=== PATIENT | female | born 1990 | race Caucasian/White ===

== ENCOUNTER 2016-06-20 00:54 | Emergency (ER) | payer OTHER ==
[2016-06-20 00:55] VITALS: BMI 24.7
--- NOTE | 2016-06-20 01:33 | ED PDOC ---
HPI: Abdomen Time Seen by Provider: 06/20/16 01:06 Chief Complaint (Nursing): Abdominal Pain Chief Complaint (Provider): Abdominal Pain History Per: Patient History/Exam Limitations: no limitations Onset/Duration Of Symptoms: Days (x9) Location Of Pain/Discomfort: Other (Radiated to the back) Associated Symptoms: Back Pain. denies: Nausea, Vomiting Additional Complaint(s): Mahesh Newby is a 25 year old female with a past medical history of anxiety and asthma who presents to the ED with a chief complaint of pelvic pain onset x9 days prior to arrival. Associated symptoms include leg cramping but denies any nausea or vomiting. Prior to arrival patient consulted with Dr. Gauthier at [facility] where an Ultrasound showed questionable early IUP vs ectopic with no pole or yolk sac and was advised to return to the ED if pain was persistent. Patients reports pain radiated to the back, her last menstrual period was 05/15/2016 and has been given Tylenol for the pain from monitoring analyst REGULAT[employer] COORDINATOR Dr. Clark who suggested to repeat an ultrasound. Patients quantitative HCG is 699.67. Last Menstral Period: 05/15/2016 Past Medical History Reviewed: Historical Data, Nursing Documentation, Vital Signs Vital Signs: Last Vital Signs Temp 98 F 06/20/16 01:04 Pulse 101 H 06/20/16 01:04 Resp 20 06/20/16 01:04 BP 123/65 06/20/16 01:04 Pulse Ox 96 06/20/16 01:55 - Medical History PMH: Anxiety, Asthma Denies: Colonic Polyps - Family History Family History: States: Unknown Family Hx - Home Medications Home Medications: Ambulatory Orders Medication Instructions Recorded Ketoprofen 2 tab PO DAILY 08/26/15 Nitrofurantoin Macrocrystals 100 mg PO BID #14 cap 06/20/16 [Macrobid] - Allergies Allergies/Adverse Reactions: Allergies Allergy/AdvReac Type Severity Reaction Status Date / Time apple Allergy Mild RASH Verified 08/26/15 09:39 kiwi Allergy Mild RASH Verified 08/26/15 09:39 strawberry Allergy Mild RASH Verified 08/26/15 09:39 Review of Systems ROS Statement: Except As Marked, All Systems Reviewed And Found Negative Gastrointestinal: Positive for: Abdominal Pain (Significant). Negative for: Nausea, Vomiting Musculoskeletal: Positive for: Leg Pain (cramping on legs) Physical Exam - Reviewed Nursing Documentation Reviewed: Yes Vital Signs Reviewed: Yes - Physical Exam Appears: Positive for: Well, No Acute Distress Head Exam: Positive for: ATRAUMATIC, NORMAL INSPECTION, NORMOCEPHALIC Skin: Positive for: Normal Color, Warm, Dry Eye Exam: Positive for: Normal appearance, EOMI, PERRL ENT: Positive for: Normal ENT Inspection Neck: Positive for: Normal, Painless ROM, Supple Cardiovascular/Chest: Positive for: Regular Rate, Rhythm, Chest Non Tender. Negative for: Murmur, Tachycardia Respiratory: Positive for: Normal Breath Sounds. Negative for: Wheezing, Respiratory Distress Gastrointestinal/Abdominal: Positive for: Normal Exam, Soft, Tenderness Pelvic Exam: Positive for: Other (Pelvic tenderness) Back: Positive for: Normal Inspection. Negative for: L CVA Tenderness, R CVA Tenderness Rectal: Positive for: Deferred Extremity: Positive for: Normal ROM. Negative for: Tenderness Lymphatic: Positive for: Deferred Neurologic/Psych: Positive for: Alert, Oriented - ECG O2 Sat by Pulse Oximetry: 96 (RA) Pulse Ox Interpretation: Normal Medical Decision Making Medical Decision Makin: Initial Impression: Ectopic vs miscarriage Initial Plan: * Acetaminophen 650mg * UA * Re-Eval * 0342: PT was seen and cleared by obgyn -Nasra SAWANT . Pt is required to return to ED in 48hrs. US shows: FINDINGS: Gestation: Gestational sac. No yolk sac. No pole. Mean sac diameter of 0.35 cm, out of range. Uterus/cervix: 0.7 x 0.3 x 0.6 cm collection along gestational sac. Closed cervix. Ovaries: Normal ovaries. No adnexal masses. Free fluid: Small free fluid within pelvis. IMPRESSION: 1. Intrauterine , of uncertain viability. Recommend followup. 2. Subchorionic hemorrhage. 3. Incidental/non-acute findings are described above. UA: shows trace leuk/some WBC-considering pt with normal temperature in ED but with suprapubic pain and back pain(no protein in UA-lower likelihood of renal stone) most probable to be a UTI. will treat with macrobid and send for culture. pt understands and agrees with plan. advised to f.u with obgyn as scheduled and if with worsened pain and or fever chills vomiting to return to ED. pt advised she will have breast tenders with the . Scribe Attestation: Documented by Kimberley Betancur acting as a scribe for Vickie Boyd PA-C. Provider Scribe Attestation: All medical record entries made by the~Reemawere at my direction and personally dictated by me. I have reviewed the chart and agree that the record accurately reflects my personal performance of the history, physical exam, medical decision making, and the department course for this patient. I have also personally directed, reviewed, and agree with the discharge instructions and disposition. Disposition - Clinical Impression Clinical Impression: Abdominal pain during , UTI (urinary tract infection) - Patient ED Disposition Is Patient to be Admitted: No Counseled Patient/Family Regarding: Studies Performed, Diagnosis, Need For Followup, Rx Given - Disposition [facility] Disposition: Routine/Home Disposition Time: 03:50 Condition: STABLE Prescriptions: Nitrofurantoin Macrocrystals [Macrobid] 100 mg PO BID #14 cap Instructions: Urinary Tract Infection in (ED), (ED), Morning Sickness (ED)
[2016-06-20 02:00] LABS: RBC URINE 2 /hpf (0-3); URINE BILIRUBIN NEGATIVE (NEGATIVE); URINE BLOOD NEGATIVE (NEGATIVE); URINE COLOR STRAW (YELLOW); URINE GLUCOSE (UA) NEG (Normal); URINE KETONE NEGATIVE (NEGATIVE); URINE LEUKOCYTE ESTERASE TRACE Leu/uL (Negative); URINE PROTEIN NEGATIVE (NEGATIVE); URINE UROBILINOGEN 0.2-1.0 mg/dL (0.2-1.0); WBC URINE 4 /hpf (0-5)
--- NOTE | 2016-06-20 03:20 | US ---
EXAM: US First Trimester, Transabdominal CLINICAL HISTORY: 25 years old, female; Pain; Other: Pelvic pain; Gestational age or lmp: 05/15/16; ; Additional info: Pelvic cramping 4 weeks preg. TECHNIQUE: Real-time transabdominal obstetrical ultrasound of the maternal pelvis and a first trimester with image documentation. COMPARISON: No relevant prior studies available. FINDINGS: Gestation: Gestational sac. No yolk sac. No pole. Mean sac diameter of 0.35 cm, out of range. Uterus/cervix: 0.7 x 0.3 x 0.6 cm collection along gestational sac. Closed cervix. Ovaries: Normal ovaries. No adnexal masses. Free fluid: Small free fluid within pelvis. IMPRESSION: 1. Intrauterine , of uncertain viability. Recommend followup. 2. Subchorionic hemorrhage. 3. Incidental/non-acute findings are described above. EXAM: US , Transvaginal CLINICAL HISTORY: 25 years old, female; Pain; Other: Pelvic pain; Gestational age or lmp: 05/15/16; ; Additional info: Pelvic cramping 4 weeks preg. TECHNIQUE: Real-time transvaginal obstetrical ultrasound of the maternal pelvis and a first trimester with image documentation. Transvaginal imaging was used for better evaluation of the fetus and adnexa. COMPARISON: No relevant prior studies available. FINDINGS: Gestation: Gestational sac. No yolk sac. No pole. Mean sac diameter of 0.35 cm, out of range. Uterus/cervix: 0.7 x 0.3 x 0.6 cm collection along gestational sac. Closed cervix. Ovaries: Normal ovaries. No adnexal masses. Free fluid: Small free fluid within pelvis. IMPRESSION: 1. Intrauterine , of uncertain viability. Recommend followup. 2. Subchorionic hemorrhage. 3. Incidental/non-acute findings are described above. EXAM: US Abdomen Limited, Appendix CLINICAL HISTORY: 25 years old, female; Pain; Other: Pelvic pain; Gestational age or lmp: 05/15/16; ; Additional info: Pelvic cramping 4 weeks preg. TECHNIQUE: Real-time ultrasound of the right lower quadrant with image documentation. COMPARISON: No relevant prior studies available. FINDINGS: Appendix: Not visualized. Free fluid: Small free fluid within RIGHT lower quadrant. IMPRESSION: 1. Nonvisualization of appendix. 2. Incidental/non-acute findings are described above.
[2016-06-20 03:56] VITALS: BP 98/53; PULSE 100; RESP 18; TEMP 98.4; O2SAT 100
--- NOTE | 2016-06-20 04:10 | CP.PCM.CON ---
History of Present Illness - History of Present Illness History of Present Illness: Pt is a G1 LMP 05/15/16 who presents to ED with c/o pelvic pain x 9days prior to presentation today. She describes the pain as suprapubic with bilateral radiation to BLQs and at present radiation to BUQs and breast pain. She denies n/v at present. States she had 1 episode of diarrhea Tuesday morning and none since. She denies vag bleeding, abnormal vag d/c, and coitus in past 2wks. States she has some internal dysuria which is mild with onset of ~1.5wks. Pt was seen in [place] ED for c/o pain 06/19/16. An ultrasound in [place] showed questionable early IUP vs ectopic with no pole or yolk sac and quantitative HCG was 699.67. Pt was advised to return to the ED if pain was persistent. Ultrasound today in [facility] shows a gestational sac 7.5 mm and a collection adj to sac measuring 1g9x5ml. No yolk sac yet visualized. The impression early iup with subchorionic hemorrhage. PSYCH HX: COLEMAN PMHX: ASTHMA; GASTRITIS WITH H.PYLORI IN PAST; UTI PSHX: T&A SHX: DENIES TOBACCO, ILLICIT DRUG USE OR ETOH ALLEGIES: FRUIT- kiwi, strawberry, & apple Review of Systems - Constitutional Constitutional: absent: Chills, Fever, Increased Appetite, Weight Gain, Weight Loss - Breasts Breasts: Pain. absent: Mass, Skin Changes - Cardiovascular Cardiovascular: absent: Chest Pain - Respiratory Respiratory: absent: Cough, Dyspnea on Exertion - Gastrointestinal Gastrointestinal: Abdominal Pain, Change in Bowel Habits, Heartburn. absent: Vomiting - Reproductive: Female Reproductive:Female: Pelvic Pain. absent: Abnormal Vaginal Bleeding, Vaginal Discharge, Vaginal Dryness, Vaginal Odor, Vaginal Pruritis Past Patient History - Infectious Disease Hx of Infectious Diseases: None - Past Medical History & Family History Past Medical History?: Yes - Past Social History Smoking Status: Never Smoked - PULMONARY Hx Asthma: Yes - HEENT Hx HEENT Problems: Yes Other/Comment: WAX BUILDUP RIGHT EAR; AWAITING TO SEE MD TO REMOVE. - HEMATOLOGICAL/ONCOLOGICAL Hx Blood Transfusions: No - GASTROINTESTINAL Hx Gastrointestinal Disorders: No - PSYCHIATRIC Hx Anxiety: Yes - SURGICAL HISTORY Hx Surgeries: No - ANESTHESIA Hx Anesthesia: No Hx Anesthesia Reactions: No Hx Malignant Hyperthermia: No Meds Home Medications: Home Medication List Medication Instructions Recorded Confirmed Type Nitrofurantoin Macrocrystals 100 mg PO BID #14 cap 06/20/16 Rx [Macrobid] Allergies/Adverse Reactions: Allergies Allergy/AdvReac Type Severity Reaction Status Date / Time apple Allergy Mild RASH Verified 08/26/15 09:39 kiwi Allergy Mild RASH Verified 08/26/15 09:39 strawberry Allergy Mild RASH Verified 08/26/15 09:39 apples AdvReac RASH Uncoded 06/19/16 12:37 Physical Exam - Head Exam Head Exam: ATRAUMATIC. absent: NORMOCEPHALIC - Respiratory Exam Respiratory Exam: NORMAL BREATHING PATTERN - GI/Abdominal Exam GI & Abdominal Exam: Guarding, Tenderness (bilateral uq tenderness with voluntary guarding). absent: Distended, Rebound - Exam External exam: NORMAL EXTERNAL EXAM Bimanual exam: Adnexal (bimanual: no adnexal tenderness; no cmt; mild uterine tenderness; severe pain to light palpation of vaginal introitus), Uterine Tenderness. absent: Adenexal Mass, Cervical Motion Tendernes Results - Vital Signs Recent Vital Signs: Last Vital Signs Temp 98.4 F 06/20/16 03:55 Pulse 100 H 06/20/16 03:55 Resp 18 06/20/16 03:55 BP 98/53 L 06/20/16 03:55 Pulse Ox 100 06/20/16 03:55 - Labs Labs: Laboratory Results - last 24 hr 06/20/16 01:29 Urine Color Straw Urine Clarity Clear Urine pH 6.0 Ur Specific [place] 1.009 Urine Protein Negative Urine Glucose (UA) Neg Urine Ketones Negative Urine Blood Negative Urine Nitrate Negative Urine Bilirubin Negative Urine Urobilinogen 0.2-1.0 Ur Leukocyte Esterase Trace Urine RBC (Auto) 2 Urine Microscopic WBC 4 Ur Squamous Epith Cells 1 Assessment & Plan - Assessment and Plan (Free Text) Assessment: Impression: Early IUP Early UTI COLEMAN Plan: Repeat qhcg on Tuesday Pelvic rest until confirm of nl iup Rx macrobid. Increase water intake. addendum: pt presented for f/u quant which had more than doubled. spoke with pt today, she has no c/o and has appt sched'd with an ob
== END 2016-06-20 03:53 | disposition home or self-care (01) ==
LOC: H.ER 00:54
DX: O26.891 Other specified pregnancy related conditions, first trimester (principal); O23.40 Unspecified infection of urinary tract in pregnancy, unspecified trimester; Z3A.01 Less than 8 weeks gestation of pregnancy; J45.909 Unspecified asthma, uncomplicated

== ENCOUNTER 2016-06-21 16:13 | Emergency (ER) | payer OTHER ==
[2016-06-21 16:13] VITALS: BMI 24.7
[2016-06-21 16:34] VITALS: TEMP 97.7
--- NOTE | 2016-06-21 16:45 | ED PDOC ---
HPI: Abdomen Time Seen by Provider: 06/21/16 16:32 Chief Complaint (Nursing): Abdominal Pain Chief Complaint (Provider): Abdominal pain History Per: Patient Additional Complaint(s): Mahesh Newby is a 25 year old female with a past medical history of anxiety and asthma who presents to the ED with a chief complaint of pelvic pain onset x10 days prior to arrival. Associated symptoms include leg cramping but denies any nausea or vomiting. Prior to arrival patient consulted with Dr. Gauthier at [place] [facility] where an Ultrasound showed questionable early IUP vs ectopic with no pole or yolk sac and was advised to return to the ED if pain was persistent. Patients reports pain radiated to the back, her last menstrual period was 05/15/2016. Pt seen and evaluated in ED yesterday for the same and was Tylenol for the pain from solution strategist [employer] Dr. Clark who suggested to repeat an ultrasound. Patients quantitative HCG is 699.67. US from 06/20/16: US IMPRESSION: 1. Intrauterine , of uncertain viability. Recommend followup. 2. Subchorionic hemorrhage. 3. Incidental/non-acute findings are described above. Past Medical History Reviewed: Nursing Documentation, Vital Signs Vital Signs: Last Vital Signs Temp 97.7 F 06/21/16 16:27 Pulse 79 06/21/16 18:50 Resp 18 06/21/16 18:50 BP 122/78 06/21/16 18:50 Pulse Ox 98 06/21/16 18:50 - Medical History PMH: Anxiety, Asthma Denies: Colonic Polyps - Surgical History Surgical History: No Surg Hx - Family History Family History: States: Unknown Family Hx - Living Arrangements Living Arrangements: With Family - Social History Current smoker - smoking cessation education provided: No Alcohol: None Drugs: Denies - Immunization History Hx Tetanus Toxoid Vaccination: No Hx Influenza Vaccination: No Hx Pneumococcal Vaccination: No - Home Medications Home Medications: Ambulatory Orders Medication Instructions Recorded Ketoprofen 2 tab PO DAILY 08/26/15 No Known Home Med 06/19/16 Nitrofurantoin Macrocrystals 100 mg PO BID #14 cap 06/20/16 [Macrobid] - Allergies Allergies/Adverse Reactions: Allergies Allergy/AdvReac Type Severity Reaction Status Date / Time apple Allergy Mild RASH Verified 08/26/15 09:39 kiwi Allergy Mild RASH Verified 08/26/15 09:39 strawberry Allergy Mild RASH Verified 08/26/15 09:39 apples AdvReac RASH Uncoded 06/19/16 12:37 Review of Systems ROS Statement: Except As Marked, All Systems Reviewed And Found Negative Gastrointestinal: Positive for: Abdominal Pain Physical Exam - Reviewed Nursing Documentation Reviewed: Yes Vital Signs Reviewed: Yes - Physical Exam Appears: Positive for: Well, Non-toxic, No Acute Distress Head Exam: Positive for: ATRAUMATIC, NORMAL INSPECTION, NORMOCEPHALIC Skin: Positive for: Normal Color, Warm, DRY Eye Exam: Positive for: EOMI, Normal appearance, PERRL ENT: Positive for: Normal ENT Inspection Neck: Positive for: Normal, Painless ROM Cardiovascular/Chest: Positive for: Regular Rate, Rhythm Respiratory: Positive for: CNT, Normal Breath Sounds Gastrointestinal/Abdominal: Positive for: Normal Exam, Bowel Sounds, Soft Back: Positive for: Normal Inspection Extremity: Positive for: Normal ROM Neurologic/Psych: Positive for: Alert, Oriented - ECG O2 Sat by Pulse Oximetry: 100 Medical Decision Making Medical Decision Making: Pt declined analgesics at this time, pain mild. no bleeding. Repeat Beta today -1765 Pt educated on results and demonstrated full understanding. Stable for discharge at this time, advised to follow up with [employer] and return to ED with any concerns Disposition - Clinical Impression Clinical Impression: Abdominal pain during - Patient ED Disposition Is Patient to be Admitted: No - Disposition Disposition: Routine/Home Disposition Time: 20:00 Condition: STABLE Additional Instructions: Beta today was 1765! Follo wup with your [employer] TENDER! return to ED with any concerns Instructions: Abdominal Pain in (ED) - POA Present On Arrival: None
[2016-06-21 18:51] VITALS: BP 122/78; PULSE 79; RESP 18
[2016-06-21 19:57] VITALS: O2SAT 100
== END 2016-06-21 19:01 | disposition home or self-care (01) ==
LOC: H.ER 16:13
DX: O99.89 Other specified diseases and conditions complicating pregnancy, childbirth and the puerperium (principal); F41.9 Anxiety disorder, unspecified; J45.909 Unspecified asthma, uncomplicated